=== PATIENT | female | born 1980 | race African-American/Black ===

== ENCOUNTER 2024-09-05 18:56 | Emergency (ER) | payer OTHER ==
[~2024-09-05] VITALS: Ht 172.7 cm; Wt 81.8 kg
[2024-09-05 19:26] VITALS: BP 148/106; PULSE 95; RESP 20; TEMP 98.5; O2SAT 100
[2024-09-05 19:58] LABS: APPEARANCE,URINE CLEAR (CLEAR); BILIRUBIN,URINE NEGATIVE (NEGATIVE); COLOR,URINE COLORLESS (YELLOW); GLUCOSE, URINE (UA) NEGATIVE (NEGATIVE); KETONES,URINE NEGATIVE (NEGATIVE); LEUKOCYTE ESTERASE ,URINE MODERATE (NEGATIVE); NITRATE,URINE NEGATIVE (NEGATIVE); OCCULT BLOOD,URINE NEGATIVE (NEGATIVE); PROTEIN,URINE NEGATIVE (NEGATIVE); SPECIFIC GRAVITIY, URINE 1.009 (1.003-1.030); UROBILINOGEN,URINE <=1.0 mg/dL (<=1.0)
[2024-09-05 22:32] LABS: BACTERIA,URINE Few /HPF (None Seen); RBC,URINE 0-2 /HPF (0-2); SQUAMOUS EPITHELIAL CELL,UR Rare /LPF (None Seen)
[2024-09-06] MEDS ORDERED: CEPH-558 PO (00:30)
[2024-09-06] MEDS ORDERED: PHEN-846 PO (00:30)
[2024-09-06] MEDS: CEPHALEXIN MONOHYDRATE 500 MG CAPSULE PO ONE (00:32)
[2024-09-06] MEDS: PHENAZOPYRIDINE HCL 100 MG TABLET PO ONE (00:32)
== END 2024-09-06 00:36 | disposition home or self-care (01) ==
LOC: EMS 18:56
DX: N39.0 Urinary tract infection, site not specified (principal)
CPT/HCPCS: 81001; 81003; 87086; 99283